=== PATIENT | female | born 1990 | race Caucasian/White ===

== ENCOUNTER → 2021-12-11 | Outpatient (CLI) | payer MEDICARE, OTHER ==
[~2021-12-11] MED LIST: IBUPROFEN800 MG PO; KEFLEX500 MG PO; NORCO 7.5-3251 EACH PO; VITAMIN C 500500 MG PO; VITAMIN D250000 UNIT PO
== END ==
LOC: KOH-I 11:54
DX: R06.02 Shortness of breath (principal); R05.9 Cough, unspecified
CPT/HCPCS: 71046

== ENCOUNTER → 2022-05-01 | Outpatient (CLI) | payer MEDICARE, OTHER | LOC: HEART 5 09:47 | DX: Z01.811 Encounter for preprocedural respiratory examination (principal); R06.02 Shortness of breath | CPT/HCPCS: 94010 ==

== ENCOUNTER → 2022-05-01 | Outpatient (CLI) | payer MEDICARE, OTHER | LOC: EXRD 10:30 | DX: Z01.811 Encounter for preprocedural respiratory examination (principal) | CPT/HCPCS: 71046; 94010 ==